=== PATIENT | female | born 1970 | race African-American/Black ===

== ENCOUNTER → 2016-06-26 | Outpatient (CLI) | payer OTHER ==
[~2016-06-26] MED LIST: CLARITIN10 MG PO; ZANTAC 150MG T150 MG PO
== END ==
LOC: RAD 08:42
DX: Z12.31 Encounter for screening mammogram for malignant neoplasm of breast (principal)

== ENCOUNTER → 2017-01-29 | Outpatient (CLI) | payer OTHER ==
--- NOTE | ~2017-01-29 | EXE ---
[facility] [address] [place] [address] STRESS ECHOCARDIOGRAM Name: ANJALI GOOD Room #: REG [facility]#: [id number] Admission: 01/29/17 Attend Phys: Devin Alvarez MD Discharge: Date of : 72 Date of Service: 01/29/17 1538 Report #: [id number] THIS REPORT FOR: //name// APPROVED REPORT Exam: Stress Echocardiogram Indication: Palpitations Patient Location: Echo lab Stress Nurse: Caitlyn Figueroa RN Ht: 5 ft 5 in BP: 121/79 mmHg Procedure The patient underwent an Exercise Stress Test using the Lorenzo Protocol. Blood pressure, heart rate, and EKG were monitored. An Echocardiogram was performed by insulation technician in four stages in quad fashion. At peak stress, four selected images were obtained and placed side by side with resting images for comparison. Stress Test Details Stress Test: Exercise stress testing was performed using a Lorenzo protocol. HR Resting HR: 63 bpm Max Heart Rate (APMHR): 175 bpm Max HR Achieved: 190 bpm Target HR (85% APMHR): 148 bpm % of APMHR: 108 Recovery HR: 96 bpm BP Resting BP: 121/79 mmHg Max BP: 136/80 mmHg Recovery BP: 120/70 mmHg ECG Resting ECG: Sinus Rhythm Stress ECG: Sinus Rhythm, nonspecific ST-T abnormalities ST Change: Non-ischemic Clinical Reason for Termination: Completed protocol/ Maximal effort Stress Symptoms: Fatigue Exercise duration: 13 min sec Highest Stage Achieved: Stage 5: 5.0 mph at 18% grade. [facility] [address] [place] [address] STRESS ECHOCARDIOGRAM Name: ANJALI GOOD Room #: REG CL [facility]#: [id number] Admission: 01/29/17 Attend Phys: Devin Alvarez MD Discharge: Date of : 72 Date of Service: 01/29/17 1538 Report #: [id number] Pre-Stress Echo The resting Echocardiogram showed normal left ventricular contractility with an estimated Ejection Fraction of about 60%. Normal wall motion in all segments on baseline images. Post-Stress Echo The stress Echocardiogram showed normal left ventricular contractility with an estimated Ejection Fraction of about >70%. Normal augmentation of wall motion in all segments on post stress images. Clinical No clinical or ECG evidence for ischemia. Conclusion Clinical Response: Non-ischemic Exercise Capacity: Superior Stress ECG Response: Non-ischemic Stress Echo Images: Non-ischemic No clinical, EKG or echocardiographic evidence for ischemia. Other Information Study Quality: Technically Difficult/Adequate Technically limited study due to large breast implants. <Conclusion> No clinical, EKG or echocardiographic evidence for ischemia. <ELECTRONICALLY SIGNED> By: Devin Alvarez MD 01/29/17 1538 1538 37 Devin Alvarez MD /FLOYD
--- NOTE | ~2017-01-29 | 2DMMODE ---
[facility] [address] [place] [address] 2 D/M-MODE ECHOCARDIOGRAM Name: ANJALI GOOD Room #: REG [facility]#: [id number] Admission: 01/29/17 Attend Phys: Devin Alvarez MD Discharge: Date of : 72 Date of Service: 01/29/17 1527 Report #: [id number] THIS REPORT FOR: //name// APPROVED REPORT Study performed: 01/29/2017 12:56:35 EXAM: Comprehensive 2D, Doppler, and color-flow Echocardiogram Patient Location: Echo lab Status: routine BSA: 1.66 BP: 121/79 mmHg Other Information Study Quality: Technically Difficult Technically limited study due to large breast implants. No m-mode measurements taken. Parasternal short axis evaluated subcostally.. Indications Palpitations 2D Dimensions RVDd: 26.97 mm LVEF(%): 60.51 (>50%) IVSd: 8.81 (7-11mm) LVOT Diam: 19.94 (18-24mm) LVDd: 32.48 mm PWd: 7.85 (7-11mm) LVDs: 22.30 (25-40mm) Aortic Root: 28.25 mm IVC: 12.00 mm Horvath's LVEF: 60.51 % Volumes Left Atrial Volume (Systole) Single Plane 4CH: 44.79 mL Single Plane 2CH: 28.38 mL LA ESV Index: 25.00 mL/m2 Aortic Valve AoV Peak Eliot.: 1.36 m/s AO Peak Gr.: 7.40 mmHg LVOT Max P.06 mmHg LVOT Max V: 1.01 m/s SARKIS Vmax: 2.31 cm2 Mitral Valve [facility] [address] [place] [address] [place] [address] 2 D/M-MODE ECHOCARDIOGRAM Name: ANJALI GOOD Room #: REG [facility]#: [id number] Admission: 01/29/17 Attend Phys: Devin Alvarez MD Discharge: Date of : 72 Date of Service: 01/29/17 1527 Report #: [id number] E/A Ratio: 1.6 MV Decel. Time: 232.35 ms MV E Max Eliot.: 0.89 m/s MV A Eliot.: 0.55 m/s MV PHT: 67.38 ms IVRT: 93.43 ms Pulmonary Valve PV Peak Eliot.: 1.04 m/s PV Peak Gr.: 4.34 mmHg Pulmonary Vein P Vein S: 0.56 m/s P Vein A: 0.14 m/s P Vein D: 0.67 m/s P Vein A Dur.: 83.0 msec P Vein S/D Ratio: 0.84 Tricuspid Valve RAP Estimate: 5.00 mmHg Left Ventricle The left ventricle is normal size. There is normal left ventricular wall thickness. The left ventricular systolic function is normal. The left ventricular ejection fraction is within the normal range. LVEF is 65%. The left ventricular diastolic function is normal. Right Ventricle The right ventricle is normal size. The right ventricular systolic function is normal. Atria The left atrium size is normal. The right atrium size is normal. Aortic Valve The aortic valve is normal in structure. No aortic regurgitation is present. There is no aortic valvular stenosis. Mitral Valve The mitral valve is normal in structure. Trace mitral regurgitation. No evidence of mitral valve stenosis. Tricuspid Valve The tricuspid valve is normal in structure. Trace tricuspid regurgitation. Unable to assess PA pressure. Pulmonic Valve Pulmonic valve is not well visualized. Trace pulmonic [address] [address] 2 D/M-MODE ECHOCARDIOGRAM Name: ANJALI GOOD Room #: REG CL [facility]#: [id number] Admission: 01/29/17 Attend Phys: Devin Alvarez MD Discharge: Date of : 72 Date of Service: 01/29/17 1527 Report #: [id number] regurgitation. Great Vessels The aortic root is normal in size. Ascending aorta is not well visualized. IVC is normal in size and collapses >50% with inspiration. Pericardium There is no pericardial effusion. <Conclusion> The left ventricle is normal size. The left ventricular systolic function is normal. The right ventricle is normal size. The left atrium size is normal. The aortic valve is normal in structure. Trace mitral regurgitation. Trace tricuspid regurgitation. <ELECTRONICALLY SIGNED> By: Devin Alavrez MD 01/29/17 1527 1527 152 Devin Alvarez MD /INF
== END ==
LOC: CV 01-27 10:50
DX: I49.9 Cardiac arrhythmia, unspecified (principal)

== ENCOUNTER → 2017-06-27 | Outpatient (CLI) | payer OTHER | LOC: RAD 10:14 | DX: Z12.31 Encounter for screening mammogram for malignant neoplasm of breast (principal) ==

== ENCOUNTER → 2018-08-06 | Outpatient (CLI) | payer OTHER | LOC: RAD 14:37 | DX: Z12.31 Encounter for screening mammogram for malignant neoplasm of breast (principal) ==

== ENCOUNTER → 2019-12-29 | Outpatient (CLI) | payer OTHER | LOC: RAD 08:15 | DX: Z12.31 Encounter for screening mammogram for malignant neoplasm of breast (principal) ==

== ENCOUNTER → 2020-12-27 | Outpatient (CLI) | payer OTHER | LOC: RAD 09:15 | PROVIDERS: ATTEND Internal Medicine | DX: Z12.31 Encounter for screening mammogram for malignant neoplasm of breast (principal); N64.89 Other specified disorders of breast ==

== ENCOUNTER → 2021-05-04 | Outpatient (CLI) | payer OTHER | LOC: BC 08:50 | PROVIDERS: ATTEND Obstetrics & Gynecology | DX: N64.4 Mastodynia (principal) ==